=== PATIENT | male | born 1940 | race Caucasian/White ===

== ENCOUNTER 2019-02-28 12:01 | Emergency (ER) | payer MEDICARE ==
[~2019-02-28] VITALS: Ht 182.9 cm; Wt 83.9 kg
[~2019-02-28 12:01] MED LIST: AMPI500C8 PO; ASPI-231 PO; BISA-13 PO; CHOL1000 PO; INSU100I4 SC; INSUINJ37 SC; PRE5T PO; SEVE800T10 PO; TACR1CAP4 PO; VALG1TAB PO
[2019-02-28 13:03] LABS: Albumin 2.7 g/dL (3.4-5.0); BUN/Creatinine Ratio 8.2; Calcium 8.9 mg/dL (8.5-10.1)
[2019-02-28 13:16] LABS: Bilirubin, Total 0.5 mg/dL (0.2-1.0); Total Protein 6.9 g/dL (6.4-8.2)
[2019-02-28 14:32] LABS: Hematocrit 33.7 % (41.0-53.0); Hemoglobin 11.1 g/dL (13.5-17.5); Mean Corpuscular Hemoglobin 31.3 pg (28.0-32.0); Mean Corpuscular Hgb Conc. 32.9 g/dL (32.0-36.0); Mean Corpuscular Volume 95.1 fL (80.0-100.0); Platelet Count (auto) 130 10^3/uL (140-450); Red Blood Cells 3.55 10^6/uL (4.5-5.90)
[2019-02-28 14:41] LABS: Red Cell Distribution Width 23.1 % (11.8-14.3)
[2019-02-28 14:43] LABS: Basophils % (manual) 0 (0.0-2.0); Blast Cells 0; Eosinophils % (manual) 0 (0-7); Metamyelocytes % 0; Myelocytes % 0; Promyelocytes % 0; Reactive Lymphocytes 0
[2019-02-28 15:03] LABS: Band Neutrophils % (manual) 7; Lymphocytes % (manual) 27 (10.0-50.0); Monocytes % (manual) 7 (0-12)
[2019-02-28] MEDS ORDERED: CATHFLO ACTIVASE (ALTEPLASE) 2 MG VIAL IV ONE ×2 (17:08→17:15)
[2019-02-28 20:49] VITALS: BP 135/82
[2019-02-28] MEDS ORDERED: EPOETIN ALFA 10,000 UNIT/1 ML VIAL SC ONE (21:00)
== END 2019-02-28 20:55 | disposition home or self-care (01) ==
LOC: ER 12:05
DX: E11.22 Type 2 diabetes mellitus with diabetic chronic kidney disease (principal); I13.2 Hypertensive heart and chronic kidney disease with heart failure and with stage 5 chronic kidney disease, or end stage renal disease; I50.9 Heart failure, unspecified; N17.9 Acute kidney failure, unspecified; N18.6 End stage renal disease; Z99.2 Dependence on renal dialysis; Z79.4 Long term (current) use of insulin; Z95.1 Presence of aortocoronary bypass graft; Z88.8 Allergy status to other drugs, medicaments and biological substances; Z79.82 Long term (current) use of aspirin
CPT/HCPCS: 36415; 71046; 80053; 83735; 85007; 85027; 94761; 96374; 99284; J2997; 90935

== ENCOUNTER → 2019-03-27 | Outpatient (CLI) | payer MEDICARE ==
[~2019-03-27] MED LIST changes: +ATOR20TA50 PO; +CARV6.25 PO; +CLOP75TA28 PO; +HYDR-4296 PO; +NIFE30TA76 PO; +PANT40TA2 PO; +TEMA15CA PO
[2019-03-27 15:53] LABS: Eosinophils # (auto) 0.1 uL; Hemoglobin 10.5 g/dL (13.5-17.5); Monocytes # (auto) 0.9 uL
[2019-03-27 15:57] LABS: Basophils # (auto) 0 uL; Basophils % (auto) 0.7 % (0.0-2.0); Eosinophils % (auto) 1.8 % (0.0-7.0); Hematocrit 31.1 % (41.0-53.0); Lymphocytes # (auto) 2.8 uL; Lymphocytes % (auto) 43.8 % (10.0-50.0); Mean Corpuscular Hgb Conc. 33.8 g/dL (32.0-36.0); Mean Corpuscular Volume 100.5 fL (80.0-100.0); Neutrophils # (auto) 2.4 uL; Neutrophils % (auto) 38.7 % (37.0-80.0); Nucleated Red Blood Cells % 0.1 %; Platelet Count (auto) 235 10^3/uL (140-450); Red Blood Cells 3.09 10^6/uL (4.5-5.90); White Blood Cell 6.3 10^3/uL (4.4-10.8)
[2019-03-27 16:05] LABS: Red Cell Distribution Width 23.9 % (11.8-14.3)
[2019-03-27 16:08] LABS: Calcium 8.3 mg/dL (8.5-10.1); Potassium 3.5 mmol/L (3.5-5.1)
[2019-03-27 16:11] LABS: BUN/Creatinine Ratio 5.9
== END | disposition home or self-care (01) ==
LOC: Rad HDHVI 13:11
PROVIDERS: ATTEND Internal Medicine Cardiovascular Disease
DX: E11.22 Type 2 diabetes mellitus with diabetic chronic kidney disease (principal); I12.0 Hypertensive chronic kidney disease with stage 5 chronic kidney disease or end stage renal disease; N18.6 End stage renal disease; D64.9 Anemia, unspecified
CPT/HCPCS: 36415; 80048; 82962; 83036; 85025; 93306

== ENCOUNTER 2019-04-04 14:00 | Inpatient (IN) | payer MEDICARE ==
[~2019-04-04] VITALS: Ht 165.1 cm; Wt 81.6 kg
[~2019-04-04 14:00] MED LIST changes: -ATOR20TA50 PO; -CARV6.25 PO; -CLOP75TA28 PO; -HYDR-4296 PO; -NIFE30TA76 PO; -PANT40TA2 PO; -TEMA15CA PO
[2019-04-04 15:08] LABS: Hemoglobin 9.7 g/dL (13.5-17.5); Lymphocytes # (auto) 1.9 uL; Neutrophils # (auto) 2.8 uL; Nucleated Red Blood Cells % 0.1 %
[2019-04-04 15:09] LABS: Albumin 2.6 g/dL (3.4-5.0); BUN/Creatinine Ratio 5.9; Calcium 7.9 mg/dL (8.5-10.1); Potassium 4.2 mmol/L (3.5-5.1)
[2019-04-04 15:10] LABS: Basophils # (auto) 0 uL; Basophils % (auto) 0.8 % (0.0-2.0); Eosinophils # (auto) 0.3 uL; Eosinophils % (auto) 4.5 % (0.0-7.0); Hematocrit 28.7 % (41.0-53.0); Lymphocytes % (auto) 32.6 % (10.0-50.0); Mean Corpuscular Hemoglobin 34.3 pg (28.0-32.0); Mean Corpuscular Hgb Conc. 33.8 g/dL (32.0-36.0); Mean Corpuscular Volume 101.6 fL (80.0-100.0); Monocytes # (auto) 0.9 uL; Monocytes % (auto) 15.1 % (0.0-12.0); Platelet Count (auto) 147 10^3/uL (140-450); Red Blood Cells 2.82 10^6/uL (4.5-5.90); White Blood Cell 5.9 10^3/uL (4.4-10.8)
[2019-04-04 15:14] LABS: Bilirubin, Total 0.4 mg/dL (0.2-1.0); Red Cell Distribution Width 22.8 % (11.8-14.3); Total Protein 7.3 g/dL (6.4-8.2)
[2019-04-04] MEDS: InsuLIN REG 1unit/0.01ml Soln (100units/ml) SC SCH ×2 (17:00→21:14)
[2019-04-04] MEDS ORDERED: DEXTROSE (50%) 50ML SYRG IV PRN (17:00)
[2019-04-04] MEDS ORDERED: traMADol HCL 50 MG TAB PO PRN (17:00)
[2019-04-04] MEDS ORDERED: ACETAMINOPHEN 500 MG TAB PO PRN (17:00)
[2019-04-04] MEDS ORDERED: NITROGLYCERIN 0.4 MG SL TAB SL PRN (17:00)
[2019-04-04] MEDS ORDERED: ONDANSETRON HCL 4 MG/2 ML VIAL IV PRN (17:00)
[2019-04-04] MEDS ORDERED: BISACODYL 5 MG EC TAB PO PRN (17:00)
[2019-04-04] MEDS ORDERED: MORPHINE SULF INJ 2 MG/ML SYRINGE 1ML IV PRN ×2 (17:00)
[2019-04-04] MEDS: ACCU-CHEK COMFORT CURVE STRIP VI SCH ×2 (17:00→21:14)
--- NOTE | 2019-04-04 18:43 | NUR ---
[facility] A/O x 4 via gurney on shelter monitor, and portable 02. Patient transfered to bed, connected to ICU monitoring and oxygen, and weighed by bedscale. Patient oriented to Arline Prater, primary RN, unit, room, bed, and unit policies regarding patient care and visiting hours. All questions and concerns addressed, patient verbalized understanding. NOTE: MRSA swab in the nares done, IV cannula g.20 in the left wrist, patent and intact.
--- NOTE | 2019-04-04 19:25 | NUR ---
FAMILY AT BEDSIDE
[2019-04-04 19:56] VITALS: BP 152/99
[2019-04-04 20:00] VITALS: BP 133/104
--- NOTE | 2019-04-04 20:30 | NUR ---
ATE DINNER WITH [employer] ABOUT 80%.
[2019-04-04 21:00] VITALS: BP 101/50
[2019-04-04] MEDS: SODIUM CHLOR 0.9% PF (SALINE LOCK) 10ML VIAL/SYR IV SCH (21:12)
[2019-04-04] MEDS: ATORVASTATIN 20 MG TAB PO SCH (21:13)
[2019-04-04] MEDS: CARVEDILOL 3.125 MG TAB PO SCH ×2 (21:13→22:00)
[2019-04-04] MEDS: TACROLIMUS 1 MG CAP PO SCH (21:14)
[2019-04-04 22:00] VITALS: BP 100/48
[2019-04-04 23:00] VITALS: BP 114/54
[2019-04-05] VITALS (38 sets, daily range): BP systolic 114–168; BP diastolic 55–117
[2019-04-05] MEDS ORDERED: NIFE30TA76 PO (00:55)
[2019-04-05] MEDS ORDERED: TEMA15CA PO (00:55)
[2019-04-05] MEDS ORDERED: PANT40TA2 PO (00:55)
[2019-04-05 04:21] LABS: Basophils # (auto) 0 uL; Basophils % (auto) 0.9 % (0.0-2.0); Eosinophils # (auto) 0.3 uL; Eosinophils % (auto) 5.4 % (0.0-7.0); Hemoglobin 9.1 g/dL (13.5-17.5); Lymphocytes # (auto) 1.9 uL; Lymphocytes % (auto) 39.1 % (10.0-50.0); Mean Corpuscular Hemoglobin 33.5 pg (28.0-32.0); Mean Corpuscular Hgb Conc. 33.6 g/dL (32.0-36.0); Mean Corpuscular Volume 99.8 fL (80.0-100.0); Monocytes # (auto) 0.7 uL; Neutrophils % (auto) 40.6 % (37.0-80.0); Nucleated Red Blood Cells % 0.1 %; Platelet Count (auto) 122 10^3/uL (140-450); White Blood Cell 4.8 10^3/uL (4.4-10.8)
[2019-04-05 04:29] LABS: % Iron Saturation 22.1 % (20-55)
[2019-04-05 04:31] LABS: Red Cell Distribution Width 22.6 % (11.8-14.3)
[2019-04-05 05:02] LABS: Albumin 2.4 g/dL (3.4-5.0); Calcium 7.6 mg/dL (8.5-10.1); Potassium 4.2 mmol/L (3.5-5.1)
[2019-04-05 05:07] LABS: BUN/Creatinine Ratio 6.5; Bilirubin, Total 0.4 mg/dL (0.2-1.0); Total Protein 6.5 g/dL (6.4-8.2)
[2019-04-05] MEDS: ACCU-CHEK COMFORT CURVE STRIP VI SCH ×4 (05:48→22:03)
[2019-04-05] MEDS: InsuLIN REG 1unit/0.01ml Soln (100units/ml) SC SCH ×4 (05:49→22:03)
[2019-04-05] MEDS: SODIUM CHLOR 0.9% PF (SALINE LOCK) 10ML VIAL/SYR IV SCH ×3 (06:11→22:04)
--- NOTE | 2019-04-05 06:54 | NUR ---
CLOSING NOTES RESTING ON BED WITH HIS EYES CLOSED WITH NO SIGNS OF DISTRESS. REPORT GIVEN TO YUE PENA.
[2019-04-05] MEDS ORDERED: SODIUM CHL 0.9% 1000 ML BAG XX ONE (07:00)
[2019-04-05] MEDS: SEVELAMER 800 MG TAB PO SCH ×3 (08:00→17:52)
[2019-04-05] MEDS ORDERED: VALGANCICLOVIR 450 MG PO SCH (08:00)
[2019-04-05] MEDS ORDERED: NITROGLYCERIN 0.2MG/HR TOPICAL PATCH TD SCH (10:00)
[2019-04-05] MEDS ORDERED: ASPirin-EC 81 mg tab PO SCH (10:00)
[2019-04-05] MEDS: ENOXAPARIN SOD 80 MG/0.8ML SYRINGE SC SCH (10:00)
--- NOTE | 2019-04-05 10:00 | NUR ---
PO MEDS TO BE HELD UNTIL AFTER DIALYSIS COMPLETE AND PATIENT STABLE.
--- NOTE | 2019-04-05 10:00 | NUR ---
DIALYSIS NURSE AT BEDSIDE ALL SUPPLIES REQUESTED PROVIDED.
--- NOTE | 2019-04-05 10:27 | NUR ---
PLASTIC SURGERY NURSE DR. LYLES AT BEDSIDE. MD SPOKE TO DIALYSIS NURSE AT BEDSIDE REGARDING FLUID STATUS. SEE MD ORDERS.
--- NOTE | 2019-04-05 11:17 | NUR ---
AVIONICS INSTALLER CONSULT DR. CARABALLO AT BEDSIDE. UPDATED ON PATIENTS STATUS. NEW ORDERS IN PLACE FOR ANGIOGRAM ON MONDAY MORNING. PER DR. CARABALLO OK TO DOWNGRADE PATIENT TO [facility]. AWAITING HOSPITALIST.
--- NOTE | 2019-04-05 11:20 | NUR ---
CARDIOTHORACIC CONSULT DR. CASILLAS UPDATED ON PATIENTS STATUS. PER MD TECHNICAL SERVICES REP TO SEE PATIENT AT THIS TIME, IF ANY CONCERNS OR ISSUES MD TO BE NOTIFIED. NO NEW ORDERS AT THIS TIME.
--- NOTE | 2019-04-05 11:59 | NUR ---
BLOOD SUGAR VIA FINGER STICK 137. PT REMAINS ON DIALYSIS, CURRENTLY DOES NOT HAVE AN APPETITE. INSULIN HELD. WILL MONITOR ORDERED.
--- NOTE | 2019-04-05 13:20 | NUR ---
DIALYSIS COMPLETE 3 LITERS REMOVED. VS 151/83 HR 99. NO DISTRESS.
[2019-04-05] MEDS: TACROLIMUS 1 MG CAP PO SCH ×2 (14:12→22:00)
[2019-04-05] MEDS: ASPirin 81 mg TAB PO SCH (14:12)
[2019-04-05] MEDS: predniSONE 5 MG TAB PO SCH (14:12)
[2019-04-05] MEDS: PANTOPRAZOLE 40 MG TAB PO SCH (14:12)
[2019-04-05] MEDS: ENALAPRIL MALEATE 2.5 MG TAB PO SCH (14:13)
--- NOTE | 2019-04-05 14:43 | NUR ---
WOUND PICTURES TAKEN. PICTURES DELAYED FROM THIS AM WHILE PATIENT WAS RECEIVING DIALYSIS THEN UP TO EAT LUNCH. RIGHT SECOND TOE CLOSED SCABBED AND INTACT. SACRUM NOTED HYPERPIGMENTED, BLANCHABLE. PT STATING HE REMEMBERS HAVING SOMETHING FROM EVEN PREVIOUS ADMISSION. WOUND CARE PICTURE TAKEN, BUTTOCK, CLEANSED, ZGAURD APPLIED AND OPTIFOAM PREVENATIVE PLACED. W/C AND DIETARY CONSULT PLACED. WOUND CARE SET FOAM FOR CHAIR IN ROOM. Addendum: 04/05/19 at 1453 by Megan Blair RN MID STERNUM/ CHEST INCISION S/P CABG FEBRUARY 2019, WELL APPROXIMATED, HEALED, NO ERYTHEMA, NO DRAINAGE. Addendum: 04/05/19 at 1453 by Megan Blair RN CHEST LEFT OPEN TO AIR.
--- NOTE | 2019-04-05 14:44 | NUR ---
assessment Patient is a 78 year old male who is in ICU 109. Per patients Reta patient was having chest pain and SOB and came to ER and was admitted. Patient had CABG on 02/19/19. Patient is on service with [employer]. Patient has a fww for home use. Patients PCP is Dr Song. I informed Reta that patients post discharge needs to be determined after cardiac workup. Reta verbalized understanding. Addendum: 04/05/19 at 1452 by Gina DON Amended: Links added.
--- NOTE | 2019-04-05 15:25 | NUR ---
TEACHINGS PATIENT APPEARS TO BE PASSIVE AGGRESSIVE TO TEACHINGS AND ACTIVITIES RECOMMENDED. DURING MEDICATION PASS PATIENT APPEARED TO BE AGGRESSIVE WHEN LOVENOX OFFERED AFTER EDUCATION PROVIDED ON IMPORTANCE AND RISKS INCLUDING PATIENTS TROPS ARE ELEVATED, PT CONTINUED TO REFUSE. . PATIENT AGAIN WAS PASSIVE AGGRESSIVE DURING I.S. TEACHINGS. PATIENT RIGHT AWAY WHEN OFFERED STATED I DO THAT AT HOME, I DON'T NEED TO DO THAT HERE, AGAIN EDUCATED ON IMPORTANCE OF EXERCISE DURING AND OUT OF HOSPITAL STAY, PT PERFORMED DEEP BREATHING WITH I.S WHILE BEING PASSIVE ON HOW OFTEN EXERCISES SHOULD BE. WILL CONTINUE TO ENCOURAGE ACTIVITIES THAT WILL BENEFIT PATIENT.
--- NOTE | 2019-04-05 16:20 | NUR ---
ACTIVITY PATIENT ENCOURAGED TO GET OOB TO CHAIR. PATIENT AT THIS TIME AGREED. CUSHION PROVIDED BY W/C APPLIED TO SEAT. PT TRANSFERED FROM BED TO CHAIR USING STANDBY ASSISTANCE, SOME WEAKNESS NOTED TO LOWER EXT. CALL LIGHT AT REACH, VSS.
[2019-04-05] MEDS: CARVEDILOL 3.125 MG TAB PO SCH ×2 (16:30→22:00)
--- NOTE | 2019-04-05 18:36 | NUR ---
PATIENT REMAINS SITTING IN CHAIR CURRENTLY EATING DINNER INDEPENDENTLY. VSS AT THIS TIME.
--- NOTE | 2019-04-05 19:10 | NUR ---
OPENING NOTE RECEIVED REPORT AND ASSUMED CARE OF PT FROM YUE PENA
[2019-04-05] MEDS ORDERED: EPOETIN ALFA 10,000 UNIT/1 ML VIAL SC ONE (21:00)
[2019-04-05] MEDS: ATORVASTATIN 20 MG TAB PO SCH (22:00)
[2019-04-05] MEDS: TEMAZEPAM 15 MG CAP PO PRN (23:39)
[2019-04-06] VITALS (23 sets, daily range): BP systolic 130–168; BP diastolic 48–105
[2019-04-06 04:20] LABS: Basophils # (auto) 0 uL; Basophils % (auto) 0.6 % (0.0-2.0); Eosinophils # (auto) 0.2 uL; Eosinophils % (auto) 3.9 % (0.0-7.0); Hematocrit 29.8 % (41.0-53.0); Hemoglobin 9.9 g/dL (13.5-17.5); Lymphocytes % (auto) 35.2 % (10.0-50.0); Mean Corpuscular Hemoglobin 33.3 pg (28.0-32.0); Mean Corpuscular Hgb Conc. 33.3 g/dL (32.0-36.0); Mean Corpuscular Volume 100.1 fL (80.0-100.0); Monocytes # (auto) 0.9 uL; Monocytes % (auto) 15.5 % (0.0-12.0); Neutrophils # (auto) 2.5 uL; Neutrophils % (auto) 44.8 % (37.0-80.0); Nucleated Red Blood Cells % 0.2 %; Platelet Count (auto) 90 10^3/uL (140-450); Red Blood Cells 2.97 10^6/uL (4.5-5.90); White Blood Cell 5.6 10^3/uL (4.4-10.8)
[2019-04-06 04:34] LABS: INR 1.04 (0.9-1.15); Partial Thromboplastin Time 32.1 sec (23.78-33.04); Prothrombin Time 11.1 sec (9.27-12.13)
[2019-04-06 04:36] LABS: Magnesium 2.4 mg/dL (1.6-2.6); Potassium 4.7 mmol/L (3.5-5.1)
[2019-04-06 04:42] LABS: BUN/Creatinine Ratio 6.3; Phosphorus 4.2 mg/dL (2.5-4.90)
[2019-04-06 05:24] LABS: Red Cell Distribution Width 22.8 % (11.8-14.3)
[2019-04-06] MEDS: SODIUM CHLOR 0.9% PF (SALINE LOCK) 10ML VIAL/SYR IV SCH ×3 (06:17→22:56)
[2019-04-06] MEDS: InsuLIN REG 1unit/0.01ml Soln (100units/ml) SC SCH ×4 (07:00→22:55)
--- NOTE | 2019-04-06 07:20 | NUR ---
CLOSING NOTE REPORT GIVEN AND CARE ENDORSED TO EMELIA PENA
[2019-04-06] MEDS: ACCU-CHEK COMFORT CURVE STRIP VI SCH ×4 (07:53→22:55)
[2019-04-06] MEDS: SEVELAMER 800 MG TAB PO SCH ×3 (09:04→18:15)
[2019-04-06] MEDS: ENOXAPARIN SOD 80 MG/0.8ML SYRINGE SC SCH ×3 (10:00→13:06)
[2019-04-06] MEDS: TACROLIMUS 1 MG CAP PO SCH ×2 (10:05→22:00)
[2019-04-06] MEDS: CARVEDILOL 3.125 MG TAB PO SCH ×2 (10:07→22:54)
[2019-04-06] MEDS: PANTOPRAZOLE 40 MG TAB PO SCH (10:07)
[2019-04-06] MEDS: predniSONE 5 MG TAB PO SCH (10:08)
[2019-04-06] MEDS: ASPirin 81 mg TAB PO SCH (10:08)
[2019-04-06] MEDS: ENALAPRIL MALEATE 2.5 MG TAB PO SCH (10:09)
--- NOTE | 2019-04-06 12:00 | NUR ---
Resumed care at 0700. Orders reviewed and ongoing assessments being done. Being treated for NSTEMI, has been in no acute distress and interacting appropriately. Able to make needs known. Is fatigued and not wanting to get out of bed, can shift weight in bed on his own and moves all extremities. Good appetite and ate 100% of breakfast, able to feed self. Reviewed plan of care, scheduled for a [facility] on Monday. Dr. Acevedo in to round at 11 am, examined and chart reviewed. Per Dr. Acevedo stable to transfer to [facility] when bed available.
--- NOTE | 2019-04-06 12:30 | NUR ---
WOUND CARE NOTE: WOUND CONSULT ORDERED FOR PATIENT. WOUND PHOTOS TAKEN BY BEDSIDE NURSE YESTERDAY. PATIENT WAS ADMITTED TO [facility] WITH DIAGNOSIS OF HEART FAILURE. HE IS S/P CABG. PATIENT HAS CURRENT LILIANA SCORE OF 20. PATIENT CAN SELF TURN/REPOSITION SELF. HE IS ABLE TO SIT UP IN CHAIR WITH GOOD BALANCE. GAVE PATIENT SOF-CARE PRESSURE REDISTRIBUTION CUSHION YESTERDAY FOR USE WHEN UP IN CHAIR PREVENTATIVE. PATIENT HAS INTACT PINK COLLAGEN SCARS WITH MILD HYPERPIGMENTATION TO MEDIAL SACRUM. HE HAS A SCABBED ABRASION TO THE RIGHT # 2 TOES, INTACT SCAR TO STERNUM THAT IS WELL APPROXIMATED. ALL SKIN INTEGRITY ISSUES LEFT OPEN TO AIR. NO NEED FOR DRESSINGS/INTERVENTIONS AT THIS TIME. NO NEED FOR WOUND CARE.
--- NOTE | 2019-04-06 12:48 | NUR ---
Nutrition consult/assessment Notes please see attached link for complete assessment Est. Needs based on BW (81 kg): 6538-7680 kcal (25-27 kcal/kgBW), 97-105 gms pro (1.2-1.3 gms/kgBW r/t HD, wound healing). Will continue to monitor pertinent labs and reassess nutrient need prn Addendum: 04/06/19 at [address] Amended: Links added.
--- NOTE | 2019-04-06 16:50 | NUR ---
Report given to Kristie PENA at 1621 via phone. Transferred to room 291A via wheelchair and arrived without incident. All belongings accounted for. Requested to use the restroom. Escorted to restroom and told to pull the red string when done (call light) for assistance back to bed. Kristie PENA arrived and aware that he is in the restroom.
--- NOTE | 2019-04-06 16:55 | NUR ---
Received patient to Room 291A. Patient is alert and oriented. Assisted to the bathroom with use of cane. Patient instructed to call to go back to bed.
--- NOTE | 2019-04-06 18:53 | NUR ---
Patient's at bedside. She states the patient "must" have dialysis tomorrow, Monday. She is requesting the business services clerk be called to get orders. Page placed to Dr. Mcghee.
--- NOTE | 2019-04-06 19:20 | NUR ---
Return call from Dr. Mcghee. Dr. Mcghee states that dialysis will be on Monday after the heart cath so the contrast will be dialyized out. Patient and informed.
--- NOTE | 2019-04-06 19:30 | NUR ---
Opening Shift Note Assumed care of patient, awake and alert. Flat affect. Incision scar on chest healed. Lungs clear. Oxygen @ 2 liters via NC. No S/S of distress/SOB or pain. Instructed on POC, aware of heart cath on Monday. will continue to monitor for changes Q1hr and PRN.
[2019-04-06 21:44] LABS: Urine Bacteria NONE SEEN /hpf (None Seen); Urine Blood Negative /uL (Negative); Urine Specific Gravity 1.008 (1.001-1.035); Urine WBC 1 /hpf (0 - 3)
[2019-04-06] MEDS: ATORVASTATIN 20 MG TAB PO SCH (22:54)
[2019-04-06] MEDS: TEMAZEPAM 15 MG CAP PO PRN (22:56)
[2019-04-07] MEDS: SODIUM CHLOR 0.9% PF (SALINE LOCK) 10ML VIAL/SYR IV SCH ×3 (06:00→22:12)
[2019-04-07 06:06] VITALS: BP 155/87
[2019-04-07 06:29] LABS: Basophils # (auto) 0 uL; Basophils % (auto) 0.8 % (0.0-2.0); Eosinophils # (auto) 0.3 uL; Eosinophils % (auto) 4.9 % (0.0-7.0); Hematocrit 26.9 % (41.0-53.0); Hemoglobin 9.3 g/dL (13.5-17.5); Lymphocytes # (auto) 1.8 uL; Lymphocytes % (auto) 28.5 % (10.0-50.0); Mean Corpuscular Hemoglobin 34.9 pg (28.0-32.0); Mean Corpuscular Hgb Conc. 34.6 g/dL (32.0-36.0); Mean Corpuscular Volume 100.9 fL (80.0-100.0); Monocytes # (auto) 0.8 uL; Monocytes % (auto) 12.1 % (0.0-12.0); Neutrophils # (auto) 3.4 uL; Neutrophils % (auto) 53.7 % (37.0-80.0); Platelet Count (auto) 104 10^3/uL (140-450); Red Blood Cells 2.66 10^6/uL (4.5-5.90); White Blood Cell 6.3 10^3/uL (4.4-10.8)
[2019-04-07 06:32] LABS: Red Cell Distribution Width 22.2 % (11.8-14.3)
--- NOTE | 2019-04-07 07:00 | NUR ---
OPENING NOTE RECEIVED REPORT FROM RN LACTATION CONSULTANT NURSE. PT SLEEPING IN BED WITH NO SIGNS OF DISTRESS OR PAIN. ATTEMPTED TO FLUSH IV AND WAS NOT SUCCESSFUL. ATTEMPTED TO PLACE AN IV USING CLEAN TECHNIQUE AND WAS UNABLE TO. NOTIFIED CHARGE NURSE. NASAL CANULA PLACED PROPERLY AND RUNNING AT 2 LITERS. BED IS LOCKED, IN LOWEST POSITION WITH SIDE RAILS UP AND CALL LIGHT WITHIN REACH. WILL CONTINUE TO MONITOR THROUGHOUT SHIFT. Signed: 04/07/19 at 1432 by SN Jordan <Co-Signature Required> Co-Signed: 04/07/19 at 1432 by Kristie Roberto RN RN
[2019-04-07] MEDS: ACCU-CHEK COMFORT CURVE STRIP VI SCH ×4 (07:03→22:25)
[2019-04-07] MEDS: InsuLIN REG 1unit/0.01ml Soln (100units/ml) SC SCH ×4 (07:03→22:25)
[2019-04-07] MEDS: SEVELAMER 800 MG TAB PO SCH ×3 (07:36→17:40)
[2019-04-07 09:34] VITALS: BP 156/94
[2019-04-07] MEDS: predniSONE 5 MG TAB PO SCH (10:00)
[2019-04-07] MEDS: PANTOPRAZOLE 40 MG TAB PO SCH (10:01)
[2019-04-07] MEDS: ENALAPRIL MALEATE 2.5 MG TAB PO SCH (10:01)
[2019-04-07] MEDS: CARVEDILOL 3.125 MG TAB PO SCH ×2 (10:01→22:12)
[2019-04-07] MEDS: ASPirin 81 mg TAB PO SCH (10:01)
[2019-04-07] MEDS: TACROLIMUS 1 MG CAP PO SCH ×2 (10:05→22:10)
[2019-04-07 13:17] VITALS: BP_SYST 102; BP_SYST 153; BP_DIAS 71; BP_DIAS 92
--- NOTE | 2019-04-07 14:31 | NUR ---
IV restart attempted X 2 without success. House sup informed. Call placed to PICC line RN for a midline.
--- NOTE | 2019-04-07 15:55 | NUR ---
MIDLINE PLACEMENT 20CM 4FR MIDLINE CATHETER EASILY PLACED IN THE RIGHT BASILIC VEIN. PT TOLERATED PROCEDURE VERY WELL. GOOD BLOOD RETURN AND NS FLUSHED EASILY AFTERWARDS. SURE=LOCK, BIO-PATCH AND CLEAR TOP DRESSING APPLIED. LOT # OF CATHETER USED: [id number]. NURSE NOTIFIED.
[2019-04-07 17:08] VITALS: BP 156/87
[2019-04-07 17:08] LABS: Calcium 7.9 mg/dL (8.5-10.1); Potassium 4.7 mmol/L (3.5-5.1)
[2019-04-07 17:10] LABS: BUN/Creatinine Ratio 7.4
--- NOTE | 2019-04-07 19:35 | NUR ---
Opening Shift Note Assumed care of patient, awake and alert oriented x4. No S/S of distress/SOB or pain noted. Bed is in lowest locked position with bed rails up x2 and call light is within reach of the patient. Instructed on POC and to call for assist PRN.
--- NOTE | 2019-04-07 20:00 | NUR ---
Unable to get consent forms signed: Patient would like to speak to the doctor about the procedure before signing consent forms.
[2019-04-07 21:51] VITALS: BP 151/93
[2019-04-07] MEDS: ATORVASTATIN 20 MG TAB PO SCH (22:11)
[2019-04-07] MEDS: TEMAZEPAM 15 MG CAP PO PRN (22:26)
[2019-04-08 05:51] VITALS: BP 153/90
--- NOTE | 2019-04-08 06:15 | NUR ---
Call from [facility]: Received a call from Edyta from [facility] asking for time of patients procedure. Time not yet scheduled. Instructed from Edyta to let the next shift nurse know to call [facility] back directed at #[phone] so a dialysis nurse can be sent over in a timely manner. Will endorse to day shift nurse.
[2019-04-08 06:30] LABS: BUN/Creatinine Ratio 7.4; Calcium 8.1 mg/dL (8.5-10.1)
[2019-04-08] MEDS: SODIUM CHLOR 0.9% PF (SALINE LOCK) 10ML VIAL/SYR IV SCH ×3 (06:30→21:55)
[2019-04-08] MEDS: ACCU-CHEK COMFORT CURVE STRIP VI SCH ×4 (06:30→21:54)
[2019-04-08] MEDS: InsuLIN REG 1unit/0.01ml Soln (100units/ml) SC SCH ×4 (06:30→21:54)
--- NOTE | 2019-04-08 06:44 | NUR ---
Closing Note: Patient is resting in bed with breaths even and unlabored. No S/S os distress SOB or pain noted. Instructed patient to be NPO till the procedure. Patient verbalized understanding. Will endorse care to day shift nurse.
--- NOTE | 2019-04-08 07:02 | NUR ---
Opening Shift Note Assumed care of patient. Pt asleep, arouse by name. Pt alert and oriented x4. No s/s of distress or SOB. Pt denies having any pain. Bed in low and locked position. Instructed Pt on POC and to call for assist PRN. Will continue to monitor for changes Q1hr and PRN.
[2019-04-08] MEDS: SEVELAMER 800 MG TAB PO SCH ×3 (08:00→18:00)
[2019-04-08] MEDS: predniSONE 5 MG TAB PO SCH (08:16)
[2019-04-08] MEDS: TACROLIMUS 1 MG CAP PO SCH ×2 (08:16→21:54)
[2019-04-08] MEDS: PANTOPRAZOLE 40 MG TAB PO SCH (08:16)
[2019-04-08] MEDS: ASPirin 81 mg TAB PO SCH (08:17)
[2019-04-08] MEDS: CARVEDILOL 3.125 MG TAB PO SCH ×2 (08:17→21:53)
[2019-04-08] MEDS: ENALAPRIL MALEATE 2.5 MG TAB PO SCH (08:17)
--- NOTE | 2019-04-08 08:25 | NUR ---
To Cathlab Pt taken to cathlab for procedure by this RN and JEAN Lea.
[2019-04-08 09:00] VITALS: BP 162/91
[2019-04-08] MEDS ORDERED: IOHEXOL 350 MG/ML 100ML IJ ONE (09:23)
[2019-04-08] MEDS ORDERED: LIDOCAINE 2%HCL (LOCAL ANESTH.) INJ 20ML MDV ONE (09:23)
[2019-04-08] MEDS ORDERED: fentaNYL CITRATE 100 MCG/2 ML VL ONE (09:33)
[2019-04-08] MEDS ORDERED: ANGIOMAX 250 MG VIAL IV ONE (09:33)
[2019-04-08] MEDS ORDERED: MIDAZOLAM HCL 1MG/1ML-2 ML VIAL ONE (09:34)
[2019-04-08] MEDS ORDERED: SODIUM CHL 0.9% 50 ML ONE (09:34)
[2019-04-08] MEDS ORDERED: IODIXANOL 320MG/ML 100ML BTL IV ONE ×4 (09:40→12:08)
[2019-04-08] MEDS ORDERED: ADENOSINE 6 MG/2 ML INJ IV ONE (10:27)
[2019-04-08] MEDS ORDERED: ADENOSINE 90 MG/30 ML INJ IV ONE (10:28)
[2019-04-08] MEDS ORDERED: VERAPAMIL 2.5MG/ML INJ 2ML VIAL IV ONE (11:21)
[2019-04-08] MEDS ORDERED: NITROGLYCERIN 5MG/ML 10ML VIAL IV ONE (11:22)
--- NOTE | 2019-04-08 11:31 | NUR ---
PT Patient was sent down for a procedure and will have dialysis once he comes back. Hold PT as per JEAN Lea today. Addendum: 04/08/19 at 1132 by GARLAND SAN PTT Amended: Links added.
[2019-04-08] MEDS ORDERED: ATROPINE SULFATE 1 MG/1 ML VIAL ONE (11:38)
[2019-04-08] MEDS ORDERED: ASPirin 325 MG TAB ONE (12:28)
[2019-04-08] MEDS ORDERED: CLOPIDOGREL 300 MG TAB ONE (12:28)
[2019-04-08] MEDS ORDERED: hydrALAZINE HCL 20 MG/ML VL ONE (12:35)
[2019-04-08 14:30] VITALS: BP 143/86
--- NOTE | 2019-04-08 14:30 | NUR ---
PT BACK FROM [employer] PRESS HELPER. R GROIN DRESSING CLEAN, DRY AND INTACT. SITE IS SOFT TO TOUCH, NO BRUISING. R PEDAL PULSE WEAK.
--- NOTE | 2019-04-08 14:38 | NUR ---
DR HALL AT BEDSIDE TALKING TO PT.
[2019-04-08 15:30] VITALS: BP 150/83
[2019-04-08] MEDS ORDERED: traMADol HCL 50 MG TAB PO PRN (15:30)
--- NOTE | 2019-04-08 15:40 | NUR ---
EMBOSSING TOOL SETTER AT BEDSIDE.
[2019-04-08] MEDS ORDERED: SODIUM CHL 0.9% 1000 ML BAG XX ONE (16:00)
[2019-04-08 16:53] VITALS: BP 153/83
--- NOTE | 2019-04-08 19:07 | NUR ---
CLOSING SHIFT PT IN BED WITH NO S/S OF DISTRESS. DRY SANDER AT BEDSIDE. BED IN LOWEST, LOCKED POSITION, CALL LIGHT WITHIN REACH. REPORT GIVEN TO CATERING ADMINISTRATIVE ASSISTANT RN.
--- NOTE | 2019-04-08 19:30 | NUR ---
Opening Shift Note Assumed care of patient, awake and alert oriented x4. No S/S of distress/SOB or pain noted. Bed is in lowest locked position with bed rails up x2 and call light is within reach of the patient. Instructed on POC and to call for assist PRN. Addendum: 04/08/19 at 1937 by Susie Silveira RN RN Right groin dressing dry and intact and soft with palpation. No pain noted from the patient.
--- NOTE | 2019-04-08 19:33 | NUR ---
DIALYSIS COMPLETE 2 LITERS REMOVED. PATIENT IN NO DISTRESS, RESTING IN BED WITH BREATHS EVEN AND UNLABORED.
[2019-04-08] MEDS ORDERED: EPOETIN ALFA 10,000 UNIT/1 ML VIAL SC ONE (21:00)
[2019-04-08] MEDS: TEMAZEPAM 15 MG CAP PO PRN (21:52)
[2019-04-08] MEDS: ATORVASTATIN 20 MG TAB PO SCH (21:53)
[2019-04-08 22:00] VITALS: BP 148/84
--- NOTE | 2019-04-09 00:30 | NUR ---
Patient confused: Patient woke up confused at this time trying to get out of bed sounding bed alarm. Assessed patients orientation. Asked patient where he was and he stated "I know Im at the hospital, but I dont remember which hospital." When asked why he was at the hospital patient stated "I dont remember." Patient able to name self and answer todays president correctly. Vital signs taken, temperature 97.6, blood pressure 157/88, heart rate 85, respiratory rate 25, oxygen saturation 96% on 2 liters nasal cannula. Blood sugar was 154 and patient has no reports of pain. Patient is in no acute distress and assisted patient back to bed. Bed is in lowest locked position with bed rails up x2 and call light is within reach of the patient. Bed alarm is armed.
[2019-04-09 05:00] VITALS: BP 146/94
[2019-04-09] MEDS: SODIUM CHLOR 0.9% PF (SALINE LOCK) 10ML VIAL/SYR IV SCH ×2 (05:58→14:30)
[2019-04-09 06:05] LABS: Basophils # (auto) 0 uL; Basophils % (auto) 0.8 % (0.0-2.0); Eosinophils # (auto) 0.3 uL; Lymphocytes # (auto) 1.7 uL
[2019-04-09 06:10] LABS: Hematocrit 24.5 % (41.0-53.0); Hemoglobin 8.7 g/dL (13.5-17.5); Lymphocytes % (auto) 26.3 % (10.0-50.0); Mean Corpuscular Hgb Conc. 35.8 g/dL (32.0-36.0); Mean Corpuscular Volume 100.8 fL (80.0-100.0); Monocytes # (auto) 0.9 uL; Monocytes % (auto) 13.8 % (0.0-12.0); Neutrophils # (auto) 3.5 uL; Neutrophils % (auto) 55.1 % (37.0-80.0); Nucleated Red Blood Cells % 0.1 %; Platelet Count (auto) 89 10^3/uL (140-450); Red Blood Cells 2.43 10^6/uL (4.5-5.90); White Blood Cell 6.3 10^3/uL (4.4-10.8)
[2019-04-09 06:26] LABS: Calcium 7.9 mg/dL (8.5-10.1); Potassium 4.6 mmol/L (3.5-5.1)
[2019-04-09 06:29] LABS: BUN/Creatinine Ratio 7.4; Magnesium 2.3 mg/dL (1.6-2.6)
[2019-04-09] MEDS: ACCU-CHEK COMFORT CURVE STRIP VI SCH ×2 (06:33→14:30)
[2019-04-09] MEDS: InsuLIN REG 1unit/0.01ml Soln (100units/ml) SC SCH ×2 (06:33→13:21)
[2019-04-09 06:44] LABS: Red Cell Distribution Width 21.7 % (11.8-14.3)
--- NOTE | 2019-04-09 06:57 | NUR ---
Closing note: Patient is resting in bed with breaths even and unlabored. No s/s of distress SOB noted. Bed is in lowest locked position with bed rails up x2 and call light is within reach of the patient. Will endorse care to day shift nurse.
--- NOTE | 2019-04-09 07:34 | NUR ---
Opening Shift Note Assumed care of patient. Pt asleep, arouse by name. Pt alert and oriented x4. No s/s of distress or SOB. Pt denies having any pain. Right Groin Heart cath insertion site is soft to touch, no bruising or s/s of hematoma noted. Bed in low and locked position, call light within reach. Instructed Pt on POC and to call for assist PRN. Will continue to monitor for changes Q1hr and PRN
[2019-04-09 08:45] VITALS: BP 157/77
[2019-04-09] MEDS: ASPirin 81 mg TAB PO SCH (09:03)
[2019-04-09] MEDS: TACROLIMUS 1 MG CAP PO SCH (09:03)
[2019-04-09] MEDS: predniSONE 5 MG TAB PO SCH (09:04)
[2019-04-09] MEDS: PANTOPRAZOLE 40 MG TAB PO SCH (09:05)
[2019-04-09] MEDS: ENALAPRIL MALEATE 2.5 MG TAB PO SCH (09:05)
[2019-04-09] MEDS: CARVEDILOL 3.125 MG TAB PO SCH (09:05)
[2019-04-09] MEDS: SEVELAMER 800 MG TAB PO SCH ×2 (09:06→13:18)
[2019-04-09] MEDS ORDERED: CLOPIDOGREL BISULFATE 75 MG TAB PO SCH (10:00)
--- NOTE | 2019-04-09 11:40 | NUR ---
Dalila, HEALTH AND SOCIAL CARE TEACHER/cardiology at bed side to see pt, received a call from tele monitor unit to inform that pt has bigeminy PVCs on and off, pt is asymptomatic, v/s 165/80, hr 85, as per Dalila she will discussed pt's case with Dr. Landon.
[2019-04-09 12:59] VITALS: BP 165/80
--- NOTE | 2019-04-09 13:11 | NUR ---
DR. HALL AT UNIT TO SEE PT, PER DR. HALL CALL DR. CARABALLO / CARDIO TO SEE IF PT IS CLEAR FOR D/C.
--- NOTE | 2019-04-09 13:15 | NUR ---
Called/paged Dr. Landon called regarding clearance for discharge. Waiting for call back. Continue care.
[2019-04-09] MEDS ORDERED: ATOR20TA50 PO (13:35)
[2019-04-09] MEDS ORDERED: CLOP75TA28 PO (13:35)
[2019-04-09] MEDS ORDERED: HYDR-4296 PO (13:35)
[2019-04-09] MEDS ORDERED: CARV6.25 PO (13:35)
[2019-04-09 13:53] VITALS: BP 157/77
--- NOTE | 2019-04-09 13:53 | NUR ---
PT AMBULATED WITH PHYSICAL THERAPY AND WALKER AROUND THE STATION, PT BACK IN THE ROOM AND IN BED, PT'S O2 SAT 93% AT ROOM AIR.
[2019-04-09] MEDS ORDERED: hydrALAZINE HCL 25 MG TAB PO SCH (14:00)
--- NOTE | 2019-04-09 14:25 | NUR ---
Called/paged Dr. Landon/devi called to ask if pt can be d/c today. Waiting for call back. Continue care.
--- NOTE | 2019-04-09 14:43 | NUR ---
Received called back from Dr. Landon/Cardio, doctor informed of pt having bigemini PVCs on and off, pt has been asymptomatic,as per doctor pt is ok to be d/c and to follow up with cardio with in 2 weeks.
--- NOTE | 2019-04-09 15:30 | NUR ---
Discharge instructions given as ordered. Encourage to follow up with PMD as instructed. All questions and concerns addressed. Patient verbalized understanding. Medication reconciliation form completed and copy given to patient. No Home medications held in Pharmacy and no needed vaccines. Mid-line removed with catheter intact, pressure dressing applied. Telemetry unit returned to [facility].
--- NOTE | 2019-04-09 15:41 | NUR ---
re-assessment Per consult [facility] for safety, PT, medication management, vitals. Patient has signed choice letter to resume with [facility]. MD order has been sent to [facility]. Per Mi patient is on service with [facility]. I informed patient and he agreed to [facility] stating he wants to stay with his same nurse. MD order sent to [facility]. Per R[facility] she has accepted and service to resume within 24-48 hrs. Addendum: 04/09/19 at 1544 by Gina DON Amended: Links added.
--- NOTE | 2019-04-09 15:50 | NUR ---
Patient taken to vehicle via wheelchair with all personal belongings, accompanied by staff and family member. No distress noted at time of departure.
== END 2019-04-09 15:50 | disposition home health service (06) | DRG 246 ==
LOC: ER 14:19 → OVERFLOW 17:01 → ICU WEST 18:43 → TELE-WESTW 04-06 16:56
PROVIDERS: ADMIT Internal Medicine; ATTEND Internal Medicine
PROC: 5A1D70Z Performance of Urinary Filtration, Intermittent, Less than 6 Hours Per Day (ICD-10-PCS; 2019-04-05)
PROC: 027135Z Dilation of Coronary Artery, Two Arteries with Two Drug-eluting Intraluminal Devices, Percutaneous Approach (ICD-10-PCS; principal; 2019-04-08)
PROC: 02C03ZZ Extirpation of Matter from Coronary Artery, One Artery, Percutaneous Approach (ICD-10-PCS; 2019-04-08)
PROC: 4A023N7 Measurement of Cardiac Sampling and Pressure, Left Heart, Percutaneous Approach (ICD-10-PCS; 2019-04-08)
PROC: B2111ZZ Fluoroscopy of Multiple Coronary Arteries using Low Osmolar Contrast (ICD-10-PCS; 2019-04-08)
PROC: B2121ZZ Fluoroscopy of Single Coronary Artery Bypass Graft using Low Osmolar Contrast (ICD-10-PCS; 2019-04-08)
PROC: B2181ZZ Fluoroscopy of Left Internal Mammary Bypass Graft using Low Osmolar Contrast (ICD-10-PCS; 2019-04-08)
PROC: B2151ZZ Fluoroscopy of Left Heart using Low Osmolar Contrast (ICD-10-PCS; 2019-04-08)
PROC: 5A1D70Z Performance of Urinary Filtration, Intermittent, Less than 6 Hours Per Day (ICD-10-PCS; 2019-04-08)
DX: I21.4 Non-ST elevation (NSTEMI) myocardial infarction (principal); J96.00 Acute respiratory failure, unspecified whether with hypoxia or hypercapnia; I50.43 Acute on chronic combined systolic (congestive) and diastolic (congestive) heart failure; N18.6 End stage renal disease; E43 Unspecified severe protein-calorie malnutrition; I13.2 Hypertensive heart and chronic kidney disease with heart failure and with stage 5 chronic kidney disease, or end stage renal disease; I42.9 Cardiomyopathy, unspecified; Z94.0 Kidney transplant status; T82.898A Other specified complication of vascular prosthetic devices, implants and grafts, initial encounter; I25.10 Atherosclerotic heart disease of native coronary artery without angina pectoris; E78.5 Hyperlipidemia, unspecified; E11.22 Type 2 diabetes mellitus with diabetic chronic kidney disease; D63.1 Anemia in chronic kidney disease; D69.6 Thrombocytopenia, unspecified; D75.89 Other specified diseases of blood and blood-forming organs; I25.119 Atherosclerotic heart disease of native coronary artery with unspecified angina pectoris; K59.00 Constipation, unspecified; D63.8 Anemia in other chronic diseases classified elsewhere; I48.91 Unspecified atrial fibrillation; Z99.2 Dependence on renal dialysis; Z79.899 Other long term (current) drug therapy; Z83.3 Family history of diabetes mellitus; Z95.1 Presence of aortocoronary bypass graft; Z90.49 Acquired absence of other specified parts of digestive tract; Z88.8 Allergy status to other drugs, medicaments and biological substances; Z79.02 Long term (current) use of antithrombotics/antiplatelets; Z68.29 Body mass index [BMI] 29.0-29.9, adult; Y83.8 Other surgical procedures as the cause of abnormal reaction of the patient, or of later complication, without mention of misadventure at the time of the procedure; Y92.89 Other specified places as the place of occurrence of the external cause
CPT/HCPCS: 36415; 71045; 80048; 80053; 81001; 82550; 82728; 82962; 83036; 83540; 83550; 83735; 83880; 84100; 84443; 84484; 85025; 85610; 85652; 85730; 86141; 87081; 90935; 92928; 93005; 93459; 94761; 97116; 97530; G0378; J0153; J0461; J0885; J1642; J1815; J2250; J2405; J3490; J7507; Q9967

== ENCOUNTER 2019-05-01 14:28 | Inpatient (IN) | payer MEDICARE | END 2019-05-04 14:54 | LOC: ER 14:28 → TELE 14:30 → TELE-WESTW 18:40 | DX: I13.2 Hypertensive heart and chronic kidney disease with heart failure and with stage 5 chronic kidney disease, or end stage renal disease (principal); I50.23 Acute on chronic systolic (congestive) heart failure; N18.6 End stage renal disease; E44.0 Moderate protein-calorie malnutrition; R53.1 Weakness; Z95.1 Presence of aortocoronary bypass graft; I25.10 Atherosclerotic heart disease of native coronary artery without angina pectoris; Z99.2 Dependence on renal dialysis; D63.8 Anemia in other chronic diseases classified elsewhere; I48.91 Unspecified atrial fibrillation ==

== ENCOUNTER 2019-05-07 17:22 | Emergency (ER) | payer MEDICARE ==
[~2019-05-07] VITALS: Ht 182.9 cm; Wt 78.0 kg
[~2019-05-07 17:22] MED LIST changes: -AMPI500C8 PO; +ATOR20TA50 PO; +CARV6.25 PO; -CHOL1000 PO; +CLOP75TA28 PO; +HYDR-4296 PO; +NIFE30TA76 PO; +PANT40TA2 PO; +TEMA15CA PO; -VALG1TAB PO
[2019-05-07 17:54] VITALS: BP 137/71
[2019-05-07 18:28] LABS: Basophils # (auto) 0 uL; Basophils % (auto) 0.4 % (0.0-2.0); Eosinophils # (auto) 0.3 uL; Hematocrit 26.2 % (41.0-53.0); Hemoglobin 8.6 g/dL (13.5-17.5); Lymphocytes # (auto) 1.6 uL; Lymphocytes % (auto) 27.5 % (10.0-50.0); Mean Corpuscular Hemoglobin 31.3 pg (28.0-32.0); Mean Corpuscular Volume 94.9 fL (80.0-100.0); Monocytes # (auto) 0.7 uL; Monocytes % (auto) 11.6 % (0.0-12.0); Neutrophils # (auto) 3.2 uL; Neutrophils % (auto) 55.5 % (37.0-80.0); Platelet Count (auto) 133 10^3/uL (140-450); Red Blood Cells 2.76 10^6/uL (4.5-5.90); White Blood Cell 5.8 10^3/uL (4.4-10.8)
[2019-05-07 18:49] LABS: Albumin 2.1 g/dL (3.4-5.0); Calcium 8.1 mg/dL (8.5-10.1); Potassium 4.1 mmol/L (3.5-5.1)
[2019-05-07 18:52] LABS: BUN/Creatinine Ratio 5.1; Bilirubin, Total 0.3 mg/dL (0.2-1.0)
== END 2019-05-07 19:07 | disposition left against medical advice (07) ==
LOC: ER 17:31
DX: R53.1 Weakness (principal); Z53.21 Procedure and treatment not carried out due to patient leaving prior to being seen by health care provider
CPT/HCPCS: 36415; 80053; 84484; 85025; 93005; 94761

== ENCOUNTER → 2019-05-08 | Outpatient (CLI) | payer MEDICARE ==
[~2019-05-08] MED LIST changes: +HEPARIN 1,000 UNITS/ml 1ML VIAL ONE; +IOHEXOL 300 MG/ML 100ML BOTTLE IJ ONE; +LIDOCAINE 2%HCL (LOCAL ANESTH.) INJ 20ML MDV ONE
[2019-05-08 13:36] LABS: INR 1.06 (0.9-1.15); Partial Thromboplastin Time 30.9 sec (23.64-32.05)
== END | disposition home or self-care (01) ==
LOC: XYW 11:53
PROVIDERS: ATTEND Specialist
DX: T82.49XA Other complication of vascular dialysis catheter, initial encounter (principal); I13.2 Hypertensive heart and chronic kidney disease with heart failure and with stage 5 chronic kidney disease, or end stage renal disease; E11.22 Type 2 diabetes mellitus with diabetic chronic kidney disease; N18.6 End stage renal disease; I50.9 Heart failure, unspecified; F17.200 Nicotine dependence, unspecified, uncomplicated; Z99.2 Dependence on renal dialysis; Z79.4 Long term (current) use of insulin; Z95.1 Presence of aortocoronary bypass graft; Z79.82 Long term (current) use of aspirin; Z79.899 Other long term (current) drug therapy; Y83.9 Surgical procedure, unspecified as the cause of abnormal reaction of the patient, or of later complication, without mention of misadventure at the time of the procedure; Y92.89 Other specified places as the place of occurrence of the external cause
CPT/HCPCS: 36415; 36581; 76000; 85610; 85730; C1750; C1769; J1644; Q9967

== ENCOUNTER 2019-06-25 14:26 | Inpatient (IN) | payer MEDICARE | END 2019-06-28 21:05 | LOC: TELE-WESTW 14:26 | DX: R53.1 Weakness (principal); N18.6 End stage renal disease; I21.4 Non-ST elevation (NSTEMI) myocardial infarction; I63.9 Cerebral infarction, unspecified; E44.0 Moderate protein-calorie malnutrition; Z94.0 Kidney transplant status; I12.0 Hypertensive chronic kidney disease with stage 5 chronic kidney disease or end stage renal disease; Z99.2 Dependence on renal dialysis; E11.22 Type 2 diabetes mellitus with diabetic chronic kidney disease; I48.91 Unspecified atrial fibrillation; Z95.1 Presence of aortocoronary bypass graft; R41.82 Altered mental status, unspecified; E11.42 Type 2 diabetes mellitus with diabetic polyneuropathy; D63.1 Anemia in chronic kidney disease ==

== ENCOUNTER 2019-07-09 13:29 | Inpatient (IN) | payer MEDICARE | END 2019-07-19 20:35 | LOC: TELE-WESTW 07-11 13:06 → ER 13:29 → TELE 13:30 | DX: A41.9 Sepsis, unspecified organism (principal); I50.43 Acute on chronic combined systolic (congestive) and diastolic (congestive) heart failure; N18.6 End stage renal disease; J96.20 Acute and chronic respiratory failure, unspecified whether with hypoxia or hypercapnia; I13.2 Hypertensive heart and chronic kidney disease with heart failure and with stage 5 chronic kidney disease, or end stage renal disease; E44.0 Moderate protein-calorie malnutrition; N39.0 Urinary tract infection, site not specified; I25.10 Atherosclerotic heart disease of native coronary artery without angina pectoris; E78.5 Hyperlipidemia, unspecified; D63.8 Anemia in other chronic diseases classified elsewhere; I11.0 Hypertensive heart disease with heart failure; E11.65 Type 2 diabetes mellitus with hyperglycemia; E87.70 Fluid overload, unspecified ==